=== PATIENT | female | born 1995 | race Hispanic/Latino ===

== ENCOUNTER → 2018-02-27 09:09 | Outpatient (CLI) | payer OTHER, SELFPAY ==
--- NOTE | 2018-02-27 | DI.MRI.S_ITS ---
PROCEDURE: MR PELVIS WO/W CON INDICATIONS: OTHER SPECIFIC NONIFLAMMATORY DISORDERS OF THE VAGINA TECHNIQUE: Coronal HASTE, sagittal breath-hold T2 FSE; axial T1 FSE with and without fat saturation through the pelvis. Optional long- and short-axis uterine nonbreath-hold T2 FSE through the uterus. Sagittal or axial dynamic VIBE during administration of contrast. Post-contrast axial or coronal VIBE/2-D FLASH with fat saturation from the iliac crests to the symphysis. Optional diffusion weighted imaging and ADC may be performed. COMPARISON: [facility], RG, CT ABDOMEN/PELVIS WITH CONTRAST, 11/01/2017, 13:17. FINDINGS: Image quality: Excellent. Uterus: Uterus is normal in size. Endometrium is normal in thickness. Junctional zone is normal in thickness at 12 mm or less. Adnexa: Both ovaries are normal in size, without suspicious cystic or solid lesions. Urinary system: Bladder wall is normal in thickness. Distal ureters are non distended. Urethra appears normal in morphology. Nodes and vessels: No pelvic or inguinal adenopathy by size criteria. Iliac vessels are normal in size. Bowel and peritoneum: No pathologic free pelvic fluid. Inferior colon and small bowel loops are normal in caliber. Soft tissues: No inguinal hernias. No findings of pelvic floor incompetence in the absence of provocation. Bones: Marrow demonstrates normal overall signal. IMPRESSION: No mass lesion seen, and no abnormal fluid collection identified. By this examination no underlying infection or neoplasm is suspected. Dictated by: Dustin Duncan M.D. on 02/27/2018 at 16:48 Approved by: Dustin Duncan M.D. on 02/27/2018 at 16:50
== END ==
PROVIDERS: Visit Provider Urology
DX: N89.8 Other specified noninflammatory disorders of vagina (principal)
CPT/HCPCS: 72197; A9579

== ENCOUNTER → 2020-06-22 15:48 | Outpatient (CLI) | payer OTHER, SELFPAY ==
--- NOTE | 2020-06-22 | DI.MRI.S_ITS ---
PROCEDURE: MR PELIS WO/W CON INDICATIONS: Urethral diverticulum TECHNIQUE: Noncontrast coronal HASTE; 3-plane nonbreath-hold T2 FSE, axial T1 FSE with and without fat saturation obtained through the urethra and bladder. After the administration of contrast, axial and sagittal VIBE or 2-D FLASH with fat saturation obtained through the urethra and bladder. Optional diffusion weighted imaging or ADC may be performed. COMPARISON: [facility], MR, MR PELVIS WO/W CON, 02/27/2018, 9:51. FINDINGS: Image quality: Excellent. Urethra: Urethra is normal in caliber. No diverticula or masses identified. Genitalia: Vaginal wall are normal in thickness. An ovoid T2-hyperintense cystic lesion is seen in the right perineum measuring 3.0 x 2.1 x 2.0 cm, located between the urethral orifice and vaginal orifice, most likely representing is somewhat anterior Bartholin's gland cyst. There is associated diffusion restriction. A smaller Bartholin's gland cyst is seen posteriorly on the left measuring up to 8 mm in size. The ovaries are normal in size. The uterus is normal in size there is no significant endometrial thickening. The junctional zone is within normal limits. Peritoneum and bowel: Small amount of nonspecific free fluid in the pelvis. Visualized inferior colon loops, rectum, and anus appear normal. Soft tissues: Ischiorectal fossa appears normal in morphology. No adenopathy by size criteria. Degenerative disc disease is noted at the L5-S1 level. IMPRESSION: 1. No urethral diverticulum is identified. 2. A 3 cm perineal ovoid cyst between the urethra and vaginal orifice slightly to the right of midline is most likely a Bartholin's gland cyst. A smaller 0.8 cm Bartholin gland cyst is seen posterolaterally. Dictated by: Ignacio Pollock M.D. on 06/22/2020 at 17:26 Approved by: Ignacio Pollock M.D. on 06/22/2020 at 17:38
== END ==
PROVIDERS: Referring Provider Urology; Visit Provider Urology
DX: N36.1 Urethral diverticulum (principal); N75.0 Cyst of Bartholin's gland
CPT/HCPCS: 72197